=== PATIENT | male | born 1985 | race Caucasian/White ===

== ENCOUNTER 2018-06-23 04:23 | Emergency (ER) | payer SELFPAY, OTHER ==
[2018-06-23 06:31] LABS: ADD MAN DIFF? NO
[2018-06-23] MEDS: LIDOCAINE/MYLANTA 40 ML BTL PO (06:32)
[2018-06-23] MEDS: ONDANSETRON 4 MG INJ IV (06:32)
[2018-06-23 06:33] LABS: WHITE BLOOD COUNT 11.4 10^3/ul (4.8-10.8)
[2018-06-23 06:33] LABS: BASOPHILS % 0.1 % (0.0-2.0); HEMATOCRIT 48.2 % (42.0-52.0); HEMOGLOBIN 16.4 g/dl (14.0-18.0); LYMPHOCYTES # 0.6 10^3/ul (0.8-2.9); LYMPHOCYTES % 5.3 % (15.0-51.0); MEAN CORPUSCULAR HEMOGLOBIN 30.1 pg (29.0-33.0); MEAN CORPUSCULAR VOLUME 88.4 fl (82.0-101.0); MEAN PLATELET VOLUME 10.9 fl (7.4-10.4); MONOCYTE # 0.3 10^3/ul (0.3-0.9); MONOCYTES % 2.2 % (0.0-11.0); NEUTROPHIL # 10.5 10^3/ul (1.6-7.5); PLATELET COUNT 186 10^3/UL (140-415); RED BLOOD COUNT 5.45 10^6/ul (4.70-6.10); RED CELL DISTRIBUTION WIDTH 13.2 % (11.5-14.5)
[2018-06-23] MEDS: SOD CHLORIDE 0.9% 1,000 ML IV (06:33)
[2018-06-23 06:52] LABS: ALANINE AMINOTRANSFERASE 43 IU/L (13-69); ALBUMIN 4.6 g/dl (3.3-4.9); ALBUMIN/GLOBULIN RATIO 0.95; ALKALINE PHOSPHATASE 63 IU/L (42-121); ANION GAP 21 (8-16); ASPARTATE AMINO TRANSFERASE 81 IU/L (15-46); BILIRUBIN,INDIRECT 0.8 mg/dl (0-1.1); BILIRUBIN,TOTAL 0.8 mg/dl (0.2-1.3); BLOOD UREA NITROGEN 19 mg/dl (7-20); CALCIUM 10.1 mg/dl (8.4-10.2); CARBON DIOXIDE 23 mmol/L (21-31); CHLORIDE 103 mmol/L (97-110); CREATININE 0.85 mg/dl (0.61-1.24); GLUCOSE 119 mg/dl (70-220); LIPASE 67 U/L (23-300); POTASSIUM 4.4 mmol/L (3.5-5.1); SODIUM 143 mmol/L (135-144); TOTAL PROTEIN 9.4 g/dl (6.1-8.1)
== END 2018-06-23 07:42 | disposition home or self-care (01) ==
LOC: FTE 04:23
DX: R11.2 Nausea with vomiting, unspecified (principal); R10.84 Generalized abdominal pain
CPT/HCPCS: 36415; 80053; 83690; 85025; 96361; 96374; 99284-25